=== PATIENT | male | born 1955 | race Caucasian/White ===

== ENCOUNTER 2018-06-08 07:08 | Emergency (ER) | payer OTHER ==
[2018-06-08 07:43] LABS: Absolute Lymphocytes (CBC) 1.4 K/uL (0.7-4.9); Absolute Monocytes 0.7 K/uL (0.1-1.3); Absolute Neutrophil 4.2 K/uL (1.8-8.0); Basophils % 0.8 % (0-1.3); Eosinophils % 0.9 % (0-4.4); Hematocrit 49.3 % (39.6-49.0); Lymphocytes % 21.5 % (15.3-44.8); MPV 8.7 fL (7.6-11.3); Monocytes % 10.9 % (3.3-12.3); RBC Red Blood Cell Count 5.45 M/uL (4.33-5.43)
[2018-06-08] MEDS ORDERED: MEPERIDINE HCL 25 MG/0.5 ML ONE (07:47)
[2018-06-08] MEDS ORDERED: NA CHLORIDE 0.9% 1,000 ML ONE (07:47)
[2018-06-08] MEDS ORDERED: ONDANSETRON 4 MG/2 ML VIAL ONE (07:47)
[2018-06-08 08:02] LABS: Albumin 4.2 g/dL (3.4-5.0); Bilirubin Direct 0.1 mg/dL (0-0.2); Bilirubin Total 0.9 mg/dL (0.2-1.0); Potassium 3.7 mmol/L (3.5-5.1); Protein, Total 8.3 g/dL (6.4-8.2)
--- NOTE | 2018-06-08 09:25 | RAD REPORT ---
EXAM DESCRIPTION: CTAbdomen Pelvis W Contrast - 06/08/2018 9:11 am CLINICAL HISTORY: Abdominal pain. ABD PAIN COMPARISON: No comparisons TECHNIQUE: Biphasic CT imaging of the abdomen and pelvis was performed with 100 ml non-ionic IV cont rast. All CT scans are performed using dose optimization technique as appropriate and may include automated exposure control or mA/KV adjustment according to patient size. FINDINGS: The inferior lung garcía are mildly emphysematous.Small hiatal hernia is seen. Mild fatty liver is present with several low-density hepatic lesions, most compatible with cysts. The spleen is unremarkable. The pancreas and both adrenal glands are normal. Cysts are present in the co rtices of both kidneys without hydronephrosis. No bowel obstruction, free air, free fluid or abscess. Prominent sigmoid diverticulosis is present. N o evidence of acute diverticulitis seen. The appendix is normal. Small fat containing umbilical herni a. No evidence of significant lymphadenopathy. No suspicious bony findings. IMPRESSION: Prominent diverticulosis coli without CT evidence of diverticulitis. Fatty liver. Small fat containing umbilical hernia.
[2018-06-08 10:32] LABS: Urine Blood TRACE (NEG); Urine Glucose NEGATIVE (NEG); Urine Protein NEGATIVE (NEG); Urine pH 5.5 (5.0-7.0)
--- NOTE | 2018-06-08 10:44 | ER ---
Nurse's Notes [facility] Name: Dannie Patino Age: 62 yrs Sex: Male : 1955 Arrival Date: 06/08/2018 Time: 07:13 Bed 18 Private MD: Diagnosis: Lower abdominal pain, unspecified;Umbilical hernia Presentation: 06/08 07:19 Presenting complaint: Patient states: lower abd pain x months. Pt states that he was ss seen in ER "back home" recently and was diagnosed with diverticulitis. Pt reports that the pain has not gotten any better, but getting worse. N/V x "the past few days". Transition of care: patient was not received from another setting of care. Onset of symptoms is unknown. Risk Assessment: Do you want to hurt yourself or someone else? Patient reports no desire to harm self or others. Initial Sepsis Screen: Does the patient meet any 2 criteria? HR > 90 bpm. Does the patient have a suspected source of infection? No. Patient's initial sepsis screen is negative. Care prior to arrival: None. 07:19 Method Of Arrival: Ambulatory ss 07:19 Acuity: DARLIN 2 ss Historical: - Allergies: 07:22 No Known Allergies; ss - Home Meds: 09:12 amlodipine 10 mg tab 1 tab once daily [Active]; hydralazine 50 mg Oral tab daily sv [Active]; metoprolol tartrate 50 mg Oral tab once daily [Active]; hydrochlorothiazide 25 mg Oral tab 1 tab once daily [Active]; - PMHx: 07:22 Hypertension; Diverticulitis; ss - PSHx: 07:22 Hernia repair; ss - Immunization history:: Adult Immunizations up to date. - Social history:: Smoking status: Patient/guardian denies using tobacco. - Ebola Screening: : Patient denies exposure to infectious person Patient denies travel to an Ebola-affected area in the 21 days before illness onset. - Family history:: not pertinent. - Hospitalizations: : No recent hospitalization is reported. Screenin:15 Abuse screen: Denies threats or abuse. Denies injuries from another. Nutritional sv screening: No deficits noted. Tuberculosis screening: No symptoms or risk factors identified. Fall Risk None identified. Assessment: 07:25 General: Appears in no apparent distress. uncomfortable, well groomed, well developed, sv Behavior is calm, cooperative, appropriate for age. Pain: Complains of pain in abdomen Pain currently is 9 out of 10 on a pain scale. Pain began "months" Is continuous. Neuro: Level of Consciousness is awake, alert, obeys commands, Oriented to person, place, time, situation, Moves all extremities. Full function Gait is steady, Speech is normal. Respiratory: Respiratory effort is even, unlabored, Respiratory pattern is regular, symmetrical. GI: Abdomen is flat, Abd is soft X 4 quads Abdomen is tender to palpation X 4 quads. Derm: Skin is pink, warm \\T\\ dry. 09:39 Reassessment: Patient appears in no apparent distress at this time. Patient and/or sv family updated on plan of care and expected duration. Pain level reassessed. Patient is alert, oriented x 3, equal unlabored respirations, skin warm/dry/pink. Vital Signs: 07:22 BP 231 / 134; Pulse 97; Resp 18; Temp 98.8(TE); Pulse Ox 98% on R/A; Weight 93.89 kg; Height 6 ft. 0 in. (182.88 cm); Pain 9/10; 08:08 BP 200 / 127; Pulse 94; Resp 18; Pulse Ox 100% ; sv 09:39 BP 173 / 126; Pulse 79; Resp 18; Pulse Ox 100% ; sv 07:22 Body Mass Index 28.07 (93.89 kg, 182.88 cm) ED Course: 07:13 Patient arrived in ED. as 07:15 Jamil Cuenca MD is Attending Physician. rn 07:15 Payton Foster RN is Primary Nurse. sv 07:15 Arm band placed on. sv 07:20 Triage completed. ss 07:24 ED physician to see patient. sv 07:30 Patient has correct armband on for positive identification. Placed in gown. Bed in low sv position. Call light in reach. Pulse ox on. NIBP on. Door closed. Head of bed elevated. 07:30 Initial lab(s) drawn, by me, sent to lab. Inserted saline lock: 20 gauge in right sv antecubital area, using aseptic technique. Blood collected. Flushed right antecubital with 5 ml normal saline. 09:[address] via wheelchair. sj 09:12 CT Abd/Pelvis - W/Contrast In Process Unspecified. EDMS 11:11 No provider procedures requiring assistance completed. IV discontinued, intact, ph bleeding controlled, No redness/swelling at site. Pressure dressing applied. Administered Medications: 07:41 Drug: NS 0.9% 1000 ml Route: IV; Rate: 1000 ml; Site: right antecubital; sv 07:42 Drug: Demerol 25 mg Route: IVP; Site: right antecubital; sv 07:42 Drug: Zofran 4 mg Route: IVP; Site: right antecubital; sv Intake: 07:30 PO: 500ml (Contrast); Total: 500ml. sv Outcome: 10:44 Discharge ordered by MD. rn 11:12 Discharged to home ambulatory. ph 11:12 Condition: good 11:12 Discharge instructions given to patient, Instructed on discharge instructions, follow up and referral plans. medication usage, Demonstrated understanding of instructions, follow-up care, medications, Prescriptions given X 1. 11:12 Patient left the ED. ph Signatures: Dispatcher [employer] EDAR Payton Foster, RN RN Sunitha Stone Amelia as Nieto, Roman, MD MD rn Smirch, Shelby, RN RN ss Hall, Patricia, RN RN ph
--- NOTE | 2018-06-08 10:45 | EDPHYS ---
Physician Documentation [facility] Name: Dannie Patino Age: 62 yrs Sex: Male : 1955 Arrival Date: 06/08/2018 Time: 07:13 Bed 18 Private MD: ED Physician Jamil Cuenca HPI: 06/08 08:31 This 62 yrs old Male presents to ER via Ambulatory with complaints of rn Abdominal Pain. 08:31 The patient presents with abdominal pain right lower quadrant. Onset: The rn symptoms/episode began/occurred 2 week(s) ago. The symptoms do not radiate. Associated signs and symptoms: Pertinent positives: nausea and vomiting, anorexia, Pertinent negatives: fever, hematuria. The symptoms are described as sharp. Modifying factors: The symptoms are alleviated by nothing, the symptoms are aggravated by touching the area. Severity of pain: At its worst the pain was moderate in the emergency department the pain is unchanged. The patient has experienced a previous episode. Reports seen at ER 2 weeks ago, told had diverticulitis, no CT scan or blood work, finished abx, reports felt a little better but now for 2 days increased RLQ abd pain with nausea/vomiting. Reports chronic black stool, has had colonoscopy without known results, states last conversation with pcp discussion about pancreas problem and need for biopsy. . Historical: - Allergies: 07:22 No Known Allergies; ss - Home Meds: 09:12 amlodipine 10 mg tab 1 tab once daily [Active]; hydralazine 50 mg Oral tab daily sv [Active]; metoprolol tartrate 50 mg Oral tab once daily [Active]; hydrochlorothiazide 25 mg Oral tab 1 tab once daily [Active]; - PMHx: 07:22 Hypertension; Diverticulitis; ss - PSHx: 07:22 Hernia repair; ss - Immunization history:: Adult Immunizations up to date. - Social history:: Smoking status: Patient/guardian denies using tobacco. - Ebola Screening: : Patient denies exposure to infectious person Patient denies travel to an Ebola-affected area in the 21 days before illness onset. - Family history:: not pertinent. - Hospitalizations: : No recent hospitalization is reported. ROS: 08:31 Constitutional: Negative for fever, chills, and weight loss, Eyes: Negative for injury, rn pain, redness, and discharge, Neck: Negative for injury, pain, and swelling, Cardiovascular: Negative for chest pain, palpitations, and edema, Respiratory: Negative for shortness of breath, cough, wheezing, and pleuritic chest pain, Abdomen/GI: + abd pain and nausea/vomiting Back: Negative for injury and pain, : Negative for injury, bleeding, discharge, and swelling, MS/Extremity: Negative for injury and deformity, Skin: Negative for injury, rash, and discoloration, Neuro: Negative for headache, weakness, numbness, tingling, and seizure. Exam: 08:31 Constitutional: This is a well developed, well nourished patient who is awake, alert, rn and in no acute distress. Head/Face: Normocephalic, atraumatic. Eyes: Pupils equal round and reactive to light, extra-ocular motions intact. Lids and lashes normal. Conjunctiva and sclera are non-icteric and not injected. Cornea within normal limits. Periorbital areas with no swelling, redness, or edema. ENT: MMM Respiratory: No increased work of breathing, no retractions or nasal flaring. Abdomen/GI: soft, + mild tenderness RLQ and LLQ, no rebound, no masses MS/ Extremity: Pulses equal, no cyanosis. Neurovascular intact. Full, normal range of motion. Equal circumference. Neuro: Awake and alert, GCS 15, oriented to person, place, time, and situation. Cranial nerves II-XII grossly intact. Motor strength 5/5 in all extremities. Sensory grossly intact. Cerebellar exam normal. Vital Signs: 07:22 BP 231 / 134; Pulse 97; Resp 18; Temp 98.8(TE); Pulse Ox 98% on R/A; Weight 93.89 kg; ss Height 6 ft. 0 in. (182.88 cm); Pain 9/10; 08:08 BP 200 / 127; Pulse 94; Resp 18; Pulse Ox 100% ; sv 09:39 BP 173 / 126; Pulse 79; Resp 18; Pulse Ox 100% ; sv 07:22 Body Mass Index 28.07 (93.89 kg, 182.88 cm) ss MDM: 07:15 Patient medically screened. rn 10:43 Differential diagnosis: appendicitis, diverticulitis, non-specific abd pain, rn Ureterolithiasis, urinary tract infection. Data reviewed: vital signs, nurses notes, lab test result(s), radiologic studies, CT scan, and as a result, I will discharge patient. Counseling: I had a detailed discussion with the patient and/or guardian regarding: the historical points, exam findings, and any diagnostic results supporting the discharge/admit diagnosis, lab results, radiology results, the need for outpatient follow up, to return to the emergency department if symptoms worsen or persist or if there are any questions or concerns that arise at home. Special discussion: I discussed with the patient/guardian in detail that at this point there is no indication for admission to the hospital. It is understood, however, that if the symptoms persist or worsen the patient needs to return immediately for re-evaluation. Based on the history and exam findings, there is no indication for further emergent testing or inpatient evaluation. I discussed with the patient/guardian the need to see the primary care provider for further evaluation of the symptoms. ED course: CT abd no acute findings, normal bloodwork, some blood in urine, possible passed kidney stone vs umbilical hernia pain.. 06/08 07:27 Order name: Basic Metabolic Panel; Complete Time: 08:57 rn 06/08 07:27 Order name: CBC with Diff; Complete Time: 08:57 rn 06/08 07:27 Order name: Hepatic Function; Complete Time: 08:57 06/08 07:27 Order name: Lipase; Complete Time: 08:57 rn 06/08 07:27 Order name: Type And Screen; Complete Time: 08:57 06/08 08:54 Order name: ABO/RH no charge; Complete Time: 08:57 EDCT 06/08 07:27 Order name: IV Saline Lock; Complete Time: 07:35 06/08 07:27 Order name: Labs collected and sent; Complete Time: 07:35 06/08 07:27 Order name: CT Abd/Pelvis - W/Contrast; Complete Time: 09:31 rn 06/08 10:07 Order name: Urine Dipstick--Ancillary (enter results); Complete Time: 10:36 bd Administered Medications: 07:41 Drug: NS 0.9% 1000 ml Route: IV; Rate: 1000 ml; Site: right antecubital; sv 07:42 Drug: Demerol 25 mg Route: IVP; Site: right antecubital; sv 07:42 Drug: Zofran 4 mg Route: IVP; Site: right antecubital; sv Disposition: 06/08/18 10:44 Discharged to Home. Impression: Lower abdominal pain, unspecified, Umbilical hernia. - Condition is Stable. - Discharge Instructions: Abdominal Pain, Adult, Hernia, Adult. - Prescriptions for Ultram 50 mg Oral Tablet - take 1 tablet by ORAL route every 6 hours As needed; 20 tablet. - Medication Reconciliation Form, Thank You Letter, Antibiotic Education, Prescription Opioid Use form. - Follow up: Private Physician; When: As needed; Reason: Recheck today's complaints, Re-evaluation by your physician. - Problem is new. - Symptoms have improved. Signatures: Dispatcher [employer] Payton Cadena RN RN sv Jamil Cuenca MD MD rn Smirch, Shelby, RN RN Pita Gonzales RN RN ph Corrections: (The following items were deleted from the chart) 11:12 10:44 06/08/2018 10:44 Discharged to Home. Impression: Lower abdominal pain, ph unspecified; Umbilical hernia. Condition is Stable. Forms are Medication Reconciliation Form, Thank You Letter, Antibiotic Education, Prescription Opioid Use. Follow up: Private Physician; When: As needed; Reason: Recheck today's complaints, Re-evaluation by your physician. Problem is new. Symptoms have improved. rn
== END 2018-06-08 11:12 | disposition home or self-care (01) ==
LOC: ER 07:08
DX: K42.9 Umbilical hernia without obstruction or gangrene (principal); I10 Essential (primary) hypertension
CPT/HCPCS: 36415; 74177; 80048; 80076; 81003; 83690; 85025; 86850; 86900; 86901; J2175; J2405; J7030; Q9967